=== PATIENT | male | born 1985 | race Caucasian/White ===

== ENCOUNTER 2023-02-07 11:16 | Emergency (ER) | payer SELFPAY ==
[~2023-02-07] VITALS: Ht 198.1 cm; Wt 90.0 kg
[~2023-02-07 11:16] MED LIST: GUAI120015 PO; HYDR-4383 PO; KETO15CR2 TP; NAPR-56 PO; PHEN100C4 PO; PSEU-259 PO
[2023-02-07 11:53] VITALS: BP 118/70; PULSE 55; RESP 18; TEMP 97.8; O2SAT 95
[2023-02-07] MEDS ORDERED: DOXY100C43 PO (14:19)
[2023-02-07] MEDS ORDERED: NAPR-56 PO (14:19)
== END 2023-02-07 14:25 | disposition home or self-care (01) ==
LOC: ER 11:16
DX: N48.1 Balanitis (principal); F17.210 Nicotine dependence, cigarettes, uncomplicated; Z56.0 Unemployment, unspecified; Z59.00 Homelessness unspecified; Z98.890 Other specified postprocedural states; Z79.2 Long term (current) use of antibiotics; Z79.899 Other long term (current) drug therapy; Z88.8 Allergy status to other drugs, medicaments and biological substances; Z91.018 Allergy to other foods
CPT/HCPCS: 99281; 99283

== ENCOUNTER 2023-05-27 11:23 | Emergency (ER) | payer MEDICAID ==
[~2023-05-27] VITALS: Ht 198.1 cm; Wt 95.8 kg
[2023-05-27 11:24] VITALS: BP 137/71; PULSE 104; TEMP 98.3; O2SAT 99
[2023-05-27 12:19] VITALS: RESP 18
[2023-05-27] MEDS ORDERED: CEFD300C3 PO (13:11)
== END 2023-05-27 13:22 | disposition home or self-care (01) ==
LOC: ER 11:23
DX: J20.9 Acute bronchitis, unspecified (principal); Z56.0 Unemployment, unspecified; Z59.00 Homelessness unspecified; Z88.8 Allergy status to other drugs, medicaments and biological substances; Z91.018 Allergy to other foods; Z79.899 Other long term (current) drug therapy
CPT/HCPCS: 99283

== ENCOUNTER 2023-05-29 10:34 | Emergency (ER) | payer MEDICAID ==
[~2023-05-29] VITALS: Ht 198.1 cm; Wt 93.4 kg
[~2023-05-29 10:34] MED LIST changes: +CEFD300C3 PO
[2023-05-29] MEDS ORDERED: METH4TAB81 PO (11:04)
[2023-05-29] MEDS ORDERED: ALBU18HF2 INH (11:04)
[2023-05-29] MEDS ORDERED: ipratropium/albuterol 3ml nebule NEB ONE (11:11)
[2023-05-29 11:12] VITALS: BP 120/71; TEMP 98.2
[2023-05-29 11:32] VITALS: PULSE 79; RESP 18
[2023-05-29 11:39] VITALS: PULSE 97; RESP 20; O2SAT 99
== END 2023-05-29 11:43 | disposition home or self-care (01) ==
LOC: ER 10:35
DX: J20.9 Acute bronchitis, unspecified (principal); Z59.00 Homelessness unspecified; Z56.0 Unemployment, unspecified; Z79.899 Other long term (current) drug therapy; Z88.8 Allergy status to other drugs, medicaments and biological substances
CPT/HCPCS: 71045; 94640; 94760; 99283

== ENCOUNTER 2023-09-02 11:02 | Emergency (ER) | payer MEDICAID ==
[~2023-09-02 11:02] MED LIST changes: +ALBU18HF2 INH; -CEFD300C3 PO; +METH4TAB81 PO
== END 2023-09-02 16:11 | disposition left against medical advice (07) ==
LOC: ER 11:02
DX: R10.9 Unspecified abdominal pain (principal); Z53.21 Procedure and treatment not carried out due to patient leaving prior to being seen by health care provider

== ENCOUNTER 2023-11-17 13:26 | Emergency (ER) | payer MEDICAID ==
[~2023-11-17] VITALS: Ht 198.1 cm; Wt 80.0 kg
[2023-11-17 14:01] VITALS: BP 101/65; PULSE 76; TEMP 98.1; O2SAT 99
[2023-11-17] MEDS ORDERED: ketorolac trometh. 30mg/ml inj. IM ONE (15:00)
[2023-11-17] MEDS ORDERED: METH-798 PO (15:04)
[2023-11-17] MEDS ORDERED: IBUP-1984 PO (15:04)
[2023-11-17 15:34] VITALS: RESP 14
[2023-11-17] MEDS: ketorolac tromethamine 15mg/ml inj. IM ONE (15:34)
== END 2023-11-17 16:06 | disposition home or self-care (01) ==
LOC: ER 13:27
DX: M54.50 Low back pain, unspecified (principal); Z88.8 Allergy status to other drugs, medicaments and biological substances; Z91.018 Allergy to other foods; Z79.899 Other long term (current) drug therapy; Z79.1 Long term (current) use of non-steroidal anti-inflammatories (NSAID); Z59.00 Homelessness unspecified; Z56.0 Unemployment, unspecified
CPT/HCPCS: 96372; 99283; J1885

== ENCOUNTER 2024-11-10 12:26 | Emergency (ER) | payer MEDICAID ==
[~2024-11-10] VITALS: Ht 188 cm; Wt 95.5 kg
[~2024-11-10 12:26] MED LIST changes: +METH-798 PO
[2024-11-10 12:39] VITALS: BP 118/76; PULSE 67; RESP 18; O2SAT 100
--- NOTE | 2024-11-10 14:54 | RADIOLOGY REPORT ---
CLINICAL INDICATION: ANKLE PAIN TECHNIQUE: 3 radiographic views of the right ankle were obtained. Comparison: None FINDINGS/IMPRESSION: Comminuted fracture of the left distal fibula is visualized.
--- NOTE | 2024-11-10 15:10 | Physician Documentation ---
History of Present Illness ~ Chief Complaint: Ankle pain Stated Complaint: ANKLE PAIN X1 MONTH Time Seen by MD: 13:08 Primary Medical Doctor: VIDAL HPI Patient is seen today with complaints of left-sided ankle pain with date of injury being 11/03/2024 about seven days ago. Patient states he rolled his ankle and a gopher hole. Patient states he was issued crutches but is unable to use them and falls over. Patient has no other concern or complaint at the time other than uncontrolled pain. He denies any chest pain or shortness of breath or abdominal pain or nausea, vomiting, diarrhea. Tetanus witin 5 years: Yes Medication Reconciliation Allergies: Coded Allergies: mushroom (Unverified Allergy, Unknown, 11/10/24) phenytoin (Unverified Allergy, Unknown, 11/10/24) Scheduled Guaifenesin (Mucinex), 1 TAB PO Q12H Hydrocodone/Acetaminophen ([place] 5-325 Tablet), 1-2 TABLET PO Q4H Ketoconazole (Ketoconazole), 1 APPLIC TP BID Methocarbamol (Methocarbamol), 1 TAB PO Q8H Methylprednisolone (Medrol Dosepak), 0 PO UD Naproxen (Naproxen), 1 TAB PO Q12H Phenytoin Sodium Extended (Dilantin), 3 CAP PO HS Pseudoephedrine Hcl (SUDAFED tablet), 1 TAB PO Q4H Scheduled PRN Albuterol Sulfate (Ventolin Hfa), 2 PUFFS INH Q4HPRN PRN for wheezing Past Medical History Past Medical History: Seizures Past Surgical History: orthopedic surgeries, other Alcohol Use: None Drug Use: none Lives with: Spouse Lives In: Homeless Occupation: unemployed Review of Systems Constitutional: Denies: chills, fever, weakness Eyes: Denies: pain, blurred vision ENT: Denies: ear pain, nose pain, throat pain, mouth pain Respiratory: Denies: cough, shortness of breath Cardiovascular: Denies: chest pain, palpitations Gastrointestinal: Denies: abdominal pain, nausea, vomiting Genitourinary: Denies: burning, dysuria Male Genitalia: Denies: penile discharge, testicular pain Neurological: Denies: headache, dizziness Musculoskeletal: Denies: pain, swelling Integumentary: Denies: rash, lesions Allergic/Immunologic: Denies: hives, itching Hematologic/Lymphatic: Denies: no symptoms reported Psychiatric: Denies: depression, anxiety Physical Exam Vital Signs: Temperature: 97.8, Source: Temporal, Heart Rate: 67, Respiratory Rate: 18, BP: 118/76, Pulse Oximetry: 100, Weight: 95.450 Physical Exam General: Awake and Alert, no acute distress. HEENT: Conjunctiva pink, Sclera clear, Mucus Membranes moist. Neck: Supple without masses and tenderness. Resp: Unlabored. Lungs clear to auscultation bilaterally. Heart: Regular Rate and rhythm, normal S1 and S2 without murmur, rub or gallop. Musculoskeletal: Patient on exam does have swelling of the left ankle and significant tenderness to palpation of the left lateral distal ankle/fibula. Patient is neurovascularly intact distally. Motor function is intact distally. Extremities: No cyanosis,clubbing or edema. Skin: Warm and Dry. Progress Results/Orders Results/Orders Orders - LYLA ALVAREZ PAC Ankle, Complete(3vw Min) (11/10/24 14:16) Completed Orders - LYLA ALVAREZ PAC Ankle, Complete(3vw Min) (11/10/24 14:16) Vital Signs 11/10/24 12:39 Temp 97.8 Pulse 67 Resp 18 B/P (MAP) 118/76 Pulse Ox 100 EKG/XRAY/CT/US/VASC/MRI Bone/Soft Tissue X-Ray (Ext.) : Additional Comment X-ray of left ankle interpreted by myself today does show comminuted fracture of the left distal fibula. Bones are otherwise in anatomic alignment, no osteolytic or blastic lesions. DIAGNOSTIC RADIOLOGY Patient: TORI WHITE Medical Record: [id number] [facility] : 1985, Age: 39 Sex: Male Location: ER Patient Status: [facility] ER Service Date/Time: 11/10/241415 Ordering Physician: LYLA ALVAREZ PAC Exam: ANKLE, COMPLETE(3VW MIN) CLINICAL INDICATION: ANKLE PAIN TECHNIQUE: 3 radiographic views of the right ankle were obtained. Comparison: None FINDINGS/IMPRESSION: Comminuted fracture of the left distal fibula is visualized. Electronically Signed by:CECY SON MD Date & Time: 11/10/24 1451 Dictated by: CECY SON MD Dictation date and time: 11/10/24 1430 Primary Care Provider: NO PRIMARY CARE PROVIDER cc: LYLA ALVAREZ PAC ~ Medical Decision Making Findings Patient is seen today with complaints of left-sided ankle pain with date of injury being 11/03/2024 about seven days ago. Patient states he rolled his ankle and a gopher hole. Patient states he was issued crutches but is unable to use them and falls over. Patient has no other concern or complaint at the time other than uncontrolled pain. He denies any chest pain or shortness of breath or abdominal pain or nausea, vomiting, diarrhea. Shared decision-making utilized with the patient today. Patient will be given a walking boot for the left foot. Patient declined splint or casting as he states he is unable to use crutches and would much better tolerate a walking boot. Patient was given prescription of Tylenol and ibuprofen and a short supply of [place] to be taken at night and as prescribed only. Patient will follow up with Orthopedics as soon as possible. Patient will return to ED with any worsening, concerning or changing symptoms. Departure Disposition: 01 HOME / SELF CARE / HOMELESS Impression: Primary Impression: Fracture of distal fibula Qualified Codes: S82.832A - Other fracture of upper and lower end of left fibula, initial encounter for closed fracture Condition: Improved Discharge Instructions: Ankle Fracture Additional Instructions: Shared decision-making utilized with the patient today. Patient will be given a walking boot for the left foot. Patient declined splint or casting as he states he is unable to use crutches and would much better tolerate a walking boot. Patient was given prescription of Tylenol and ibuprofen and a short supply of [place] to be taken at night and as prescribed only. Patient will follow up with Orthopedics as soon as possible. Patient will return to ED with any worsening, concerning or changing symptoms. Referrals: NO PRIMARY CARE PROVIDER (PCP) Prescriptions Acetaminophen (Tylenol Extra Strength) 500 Mg Tablet 2 TAB PO Q6H PRN PRN for pain or fever for 7 Days, #56 TAB Prov: LYLA ALVAREZ 11/10/24 Ibuprofen (Ibuprofen) 800 Mg Tablet 1 TAB PO Q8H for pain for 10 Days, #30 TAB 0 Refills Prov: LYLA ALVAREZ 11/10/24 Hydrocodone Bit/Acetaminophen (Hydrocodon-Acetaminophn 10-325 tablet) 10mg- 325mg Tablet 1 TAB PO Q12H PRN PRN for pain for 5 Days, #10 TAB Prov: LYLA ALVAREZ 11/10/24 Signature Scribe Signature: No scribe Attestation: No scribe LYLA ALVAREZ Nov 10, 2024 15:10
[2024-11-10] MEDS ORDERED: ACET-1025 PO (15:18)
[2024-11-10] MEDS ORDERED: IBUP-1986 PO (15:18)
[2024-11-10] MEDS ORDERED: HYDR-3972 PO (15:18)
[2024-11-10] MEDS: ibuprofen tablet 400 MG TABLET PO STA (15:39)
[2024-11-10] MEDS: acetaminophen 325mg tablet PO STA (15:39)
[2024-11-10 15:41] VITALS: TEMP 97.8
== END 2024-11-10 15:46 | disposition home or self-care (01) ==
LOC: ER 12:27
DX: S82.832A Other fracture of upper and lower end of left fibula, initial encounter for closed fracture (principal); Z56.0 Unemployment, unspecified; Z59.00 Homelessness unspecified; Z88.8 Allergy status to other drugs, medicaments and biological substances; Z79.899 Other long term (current) drug therapy; X50.1XXA Overexertion from prolonged static or awkward postures, initial encounter; Y93.89 Activity, other specified; Y92.89 Other specified places as the place of occurrence of the external cause; Y99.8 Other external cause status
CPT/HCPCS: 73610; 99283; L4360